=== PATIENT | male | born 2000 | race Caucasian/White ===

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

== ENCOUNTER 2019-03-10 17:54 | Emergency (ER) | payer MEDICAID ==
[~2019-03-10] VITALS: Ht 180.3 cm; Wt 120.1 kg
[2019-03-10 18:04] VITALS: BP 150/76
== END 2019-03-10 19:22 | disposition home or self-care (01) ==
LOC: ER 17:54
DX: M25.561 Pain in right knee (principal)
CPT/HCPCS: 99282

== ENCOUNTER 2020-06-10 09:53 | Emergency (ER) | payer MEDICAID ==
[~2020-06-10] VITALS: Ht 180.3 cm; Wt 131.8 kg
[2020-06-10 10:07] VITALS: BP 144/91
== END 2020-06-10 13:39 | disposition home or self-care (01) ==
LOC: ER 09:54
DX: S31.010A Laceration without foreign body of lower back and pelvis without penetration into retroperitoneum, initial encounter (principal); S21.211A Laceration without foreign body of right back wall of thorax without penetration into thoracic cavity, initial encounter; Z79.2 Long term (current) use of antibiotics; Z79.899 Other long term (current) drug therapy; W01.0XXA Fall on same level from slipping, tripping and stumbling without subsequent striking against object, initial encounter; Y93.89 Activity, other specified; Y92.89 Other specified places as the place of occurrence of the external cause; Y99.8 Other external cause status
CPT/HCPCS: 99282; 99284

== ENCOUNTER 2022-05-15 14:14 | Emergency (ER) | payer MEDICAID ==
[~2022-05-15] VITALS: Ht 180.3 cm; Wt 80.9 kg
[2022-05-15] MEDS ORDERED: diazepam 5mg tablet PO ONE (14:45)
[2022-05-15] MEDS ORDERED: ketorolac trometh. 30mg/ml inj. IV ONE (17:35)
[2022-05-15] MEDS ORDERED: ketorolac tromethamine 15mg/ml inj. IV ONE (17:40)
[2022-05-15] MEDS ORDERED: propofol 10mg/ml 20ml vial IV ONE (19:05)
[2022-05-15] MEDS ORDERED: ondansetron/PF 4mg/2ml inj IV ONE (19:05)
[2022-05-15] MEDS ORDERED: propofol 1000mg/100ml bottle 100 ML IV ONE (19:40)
[2022-05-15 20:24] VITALS: BP 132/81
== END 2022-05-15 21:06 | disposition home or self-care (01) ==
LOC: ER 14:16
DX: S03.03XA Dislocation of jaw, bilateral, initial encounter (principal); R68.84 Jaw pain; F17.200 Nicotine dependence, unspecified, uncomplicated; Z79.2 Long term (current) use of antibiotics; X58.XXXA Exposure to other specified factors, initial encounter; Y93.89 Activity, other specified; Y92.89 Other specified places as the place of occurrence of the external cause; Y99.8 Other external cause status
CPT/HCPCS: 21450; 70110; 70486; 96374; 99152; 99285; J1885; J2704; J7030; 94760; 99153; A4620

== ENCOUNTER 2022-05-17 05:54 | Emergency (ER) | payer MEDICAID ==
[~2022-05-17] VITALS: Ht 180.3 cm; Wt 80.9 kg
[2022-05-17 06:02] VITALS: BP 121/80
[2022-05-17] MEDS ORDERED: NAPR-56 PO (18:46)
[2022-05-17] MEDS ORDERED: ORPH100T2 PO (18:46)
== END 2022-05-17 08:58 | disposition left against medical advice (07) ==
LOC: ER 05:54
DX: M54.9 Dorsalgia, unspecified (principal); Z53.21 Procedure and treatment not carried out due to patient leaving prior to being seen by health care provider

== ENCOUNTER 2022-05-17 16:28 | Emergency (ER) | payer MEDICAID ==
[~2022-05-17] VITALS: Ht 180.3 cm; Wt 79.1 kg
[2022-05-17 16:44] VITALS: BP 113/62
[2022-05-17] MEDS ORDERED: ORPH100T2 PO (18:46)
[2022-05-17] MEDS ORDERED: NAPR-56 PO (18:46)
[2022-05-17] MEDS ORDERED: orphenadrine citrate 60mg/2ml inj. IM ONE (18:50)
[2022-05-17] MEDS ORDERED: ketorolac trometh inj. 60 MG/2 ML VIAL IM ONE (18:50)
== END 2022-05-17 19:15 | disposition home or self-care (01) ==
LOC: ER 16:28
DX: S39.012A Strain of muscle, fascia and tendon of lower back, initial encounter (principal); M62.830 Muscle spasm of back; Z79.2 Long term (current) use of antibiotics; Z79.899 Other long term (current) drug therapy; X58.XXXA Exposure to other specified factors, initial encounter; Y93.89 Activity, other specified; Y92.89 Other specified places as the place of occurrence of the external cause; Y99.8 Other external cause status
CPT/HCPCS: 96372; 99284; J1885; J2360

== ENCOUNTER 2024-07-09 16:50 | Emergency (ER) | payer MEDICAID ==
[~2024-07-09] VITALS: Ht 180.3 cm; Wt 77.6 kg
[~2024-07-09 16:50] MED LIST changes: +ORPH100T4 PO
[2024-07-09] MEDS ORDERED: TAM75C PO (19:00)
[2024-07-09 19:21] VITALS: BP 118/64; PULSE 90; RESP 18; TEMP 98.9; O2SAT 97
== END 2024-07-09 19:22 | disposition home or self-care (01) ==
LOC: ER 16:52
DX: J11.1 Influenza due to unidentified influenza virus with other respiratory manifestations (principal); Z79.899 Other long term (current) drug therapy
CPT/HCPCS: 71045; 87502; 87503; 99284